=== PATIENT | female | born 1980 | race Two or more races ===

== ENCOUNTER 2017-11-09 16:34 | Emergency (ER) | payer OTHER ==
[~2017-11-09] VITALS: Ht 162.6 cm; Wt 74.4 kg
[2017-11-09 17:14] VITALS: BP 131/71
--- NOTE | 2017-11-09 17:20 | NUR ---
PRESENTS TO ER C/O FEVER X 7 DAYS, TAKING ADVIL. PATIENT A/OX 4. BREATHING EVEN AND UNLABORED. NO SOB. VITALS STABLE. SKIN WARM TO TOUCH. SAFETY AND COMFORT MEASURES IN PLACE. AWAITING MD ORDERS.
== END 2017-11-09 18:59 | disposition home or self-care (01) ==
LOC: ER 16:36
DX: J18.9 Pneumonia, unspecified organism (principal); H66.91 Otitis media, unspecified, right ear; Z88.0 Allergy status to penicillin
CPT/HCPCS: 71045; 99283; A4606; Z7610

== ENCOUNTER 2018-05-19 22:12 | Emergency (ER) | payer OTHER ==
[~2018-05-19] VITALS: Ht 162.6 cm; Wt 79.4 kg
[2018-05-19] MEDS ORDERED: MAG HYDROX/AL HYDROX/SIMETH 30 ML UDC PO ONE (22:19)
[2018-05-19 23:31] VITALS: BP 131/81
[2018-05-20] MEDS ORDERED: MAG HYDROX/AL HYDROX/SIMETH 30 ML UDC PO ONE
[2018-05-20] MEDS ORDERED: ONDANSETRON 4 MG TAB.RAPDIS PO ONE
[2018-05-20] MEDS ORDERED: ONDANSETRON 4 MG TAB.RAPDIS ONE (00:11)
== END 2018-05-20 00:30 | disposition home or self-care (01) ==
LOC: ER 22:18
DX: K52.9 Noninfective gastroenteritis and colitis, unspecified (principal); Z88.0 Allergy status to penicillin
CPT/HCPCS: 99283; A4606; Q0162; Z7610